=== PATIENT | male | born 1960 | race African-American/Black ===

== ENCOUNTER 2018-09-07 10:00 | Emergency (ER) | payer BC ==
[~2018-09-07] VITALS: Ht 175.3 cm; Wt 118.0 kg
[2018-09-07] MEDS ORDERED: METFORMIN (10:25)
[2018-09-07] MEDS ORDERED: AMLODIPINE (10:25)
[2018-09-07] MEDS ORDERED: ATORVASTATIN (10:25)
[2018-09-07] MEDS ORDERED: KETOROLAC 30MG/ML VIAL IM ONE (11:00)
[2018-09-07 13:21] VITALS: BP 129/79
== END 2018-09-07 13:21 | disposition home or self-care (01) ==
LOC: ER 10:00
DX: M25.562 Pain in left knee (principal); E11.9 Type 2 diabetes mellitus without complications; I10 Essential (primary) hypertension; E78.00 Pure hypercholesterolemia, unspecified; Z79.899 Other long term (current) drug therapy
CPT/HCPCS: 73562; 73590; 96372; 99283; J1885

== ENCOUNTER 2019-04-01 13:21 | Emergency (ER) | payer BC, MEDICAID ==
[~2019-04-01] VITALS: Ht 177.8 cm; Wt 110.0 kg
[~2019-04-01 13:21] MED LIST: AMLODIPINE; ATORVASTATIN; METFORMIN
[2019-04-01] MEDS ORDERED: KETOROLAC 60MG/2ML VIAL IM ONE (14:00)
[2019-04-01 14:41] VITALS: BP 148/89
== END 2019-04-01 14:43 | disposition home or self-care (01) ==
LOC: ER 13:21
DX: M25.562 Pain in left knee (principal); Z91.81 History of falling
CPT/HCPCS: 73562; 96372; 99283; J1885